=== PATIENT | male | born 1985 | race Caucasian/White ===

== ENCOUNTER 2018-10-14 10:34 | Emergency (ER) | payer OTHER ==
[2018-10-14] MEDS ORDERED: ACETAMINOPHEN 1000 MG/100 ML VIAL (NON FORMULARY) IVPB ONE (10:52)
[2018-10-14] MEDS ORDERED: SODIUM CHLORIDE 0.9% 1000 ML INFUS.BAG IV ONE (10:53)
[2018-10-14 10:55] VITALS: BP 147/84; PULSE 84; TEMP 97.9; BMI 42.5
[2018-10-14] MEDS ORDERED: ACETAMINOPHEN INJECTION 100 ML IVPB ONE (11:40)
[2018-10-14 11:45] LABS: BASO % 3.1 % (0-2.0); EOS % 3.8 % (0-4.5); HEMATOCRIT 45.7 % (35.4-49); HEMOGLOBIN 15.3 GM/dl (11.7-16.9); LYMPH % 21.8 % (8-40); MCHC 33.4 g/dl (32.0-35.9); MEAN CELL VOLUME 89.8 fl (80-96); MEAN PLT VOLUME 8.6 fl (7.5-11.1); MONO % 6.2 % (3.8-10.2); NEUT % 65.1 % (42.8-82.8); PLATELET COUNT 318 K/MM3 (134-434); RBC 5.09 M/mm3 (4.00-5.60); RDW 13.6 % (11.9-15.9); WHITE BLOOD COUNT 10.1 K/mm3 (4.0-10.8)
[2018-10-14 12:06] LABS: ALBUMIN 3.8 g/dl (3.4-5.0); BILIRUBIN,TOTAL 0.8 mg/dl (0.2-1); CALCIUM 9.1 mg/dl (8.5-10); CREATININE 0.9 mg/dl (0.55-1.3); POTASSIUM 4.3 mmol/L (3.5-5.1); TOT PROT 7.1 g/dl (6.4-8.2)
--- NOTE | 2018-10-14 14:16 | PDOC ---
History of Present Illness - General Chief Complaint: Pain Stated Complaint: ABD PAIN History Source: Patient Exam Limitations: No Limitations - History of Present Illness Initial Comments: 10/14/18 14:10 33 yo F with h/o obesity, here with c/o intermittent llq pain. over last few weeks has gotten worse. saw pcp who arranged for outpt ct scan tomrrow. but sxs were worse. pain worse with walking. nausea, no vomiting. no urinary complaints. no h/o kidney stones. does have h/o constipation. no f/c no othre complaints. no testicular pain. Past History - Past Medical History Allergies/Adverse Reactions: Allergies Allergy/AdvReac Type Severity Reaction Status Date / Time No Known Allergies Allergy Verified 10/14/18 10:35 Home Medications: Ambulatory Orders Ciprofloxacin [Cipro -] 500 mg PO Q12H #28 tablet 10/14/18 metroNIDAZOLE [Flagyl -] 500 mg PO TID #42 tablet 10/14/18 COPD: No - Suicide/Smoking/Psychosocial Hx Smoking History: Current every day smoker Have you smoked in the past 12 months: Yes Number of Cigarettes Smoked Daily: 20 Information on smoking cessation initiated: Yes Hx Alcohol Use: No Drug/Substance Use Hx: No Review of Systems - Review of Systems Constitutional: No: Chills, Diaphoresis, Fever HEENTM: No: Blurred Vision Respiratory: No: Cough, Orthopnea Cardiac (ROS): No: Chest Pain, Edema ABD/GI: Yes: Constipated, Nausea. No: Abdominal Distended : No: Burning, Dysuria, Discharge Integumentary: No: Bruising All Other Systems: Reviewed and Negative *Physical Exam - Vital Signs Last Vital Signs Temp Pulse Resp BP Pulse Ox 97.9 F 84 20 147/84 98 10/14/18 10:35 10/14/18 10:35 10/14/18 10:35 10/14/18 10:35 10/14/18 10:35 - Physical Exam Comments: 10/14/18 14:13 awake alert lungs clear bilaterally heart rrr no mrg abd soft obese mild llq suprapubic ttp. no rebound no guarding. no cva tendernss. ext wwp no edema. no calf tenderness. ED Treatment Course - LABORATORY CBC & Chemistry Diagram: 10/14/18 11:28 10/14/18 11:28 - ADDITIONAL ORDERS Additional order review: 10/14/18 11:28 RBC 5.09 MCV 89.8 MCHC 33.4 RDW 13.6 MPV 8.6 Neutrophils % 65.1 Lymphocytes % 21.8 Monocytes % 6.2 Eosinophils % 3.8 Basophils % 3.1 H - RADIOLOGY Radiology Studies Ordered: Category Date Time Status ABDOMEN & PELVIS CT WITH CONTR [CT] Stat CT Scan 10/14/18 10:52 Completed - Medications Given in the ED: ED Medications Discontinued Medications Generic Name Dose Route Start Last Admin Trade Name Yolette PRN Reason Stop Dose Admin Acetaminophen 1,000 mg 10/14/18 10:52 10/14/18 11:31 Ofirmev Injection - IVPB 10/14/18 10:53 1,000 mg ONCE ONE Administration Sodium Chloride 1,000 ml 10/14/18 10:53 10/14/18 11:31 Normal Saline - IV 10/14/18 10:54 1,000 ml ONCE ONE Administration Medical Decision Making - Medical Decision Making 10/14/18 14:13 differential uti pyelo renal colic, diveriticulitis, colitis. plan ct a/p labs ivf ua. pt with diverticulitis on ct. no abscess. labs unremarkable. normal wbc. would like to go home. will dc on cipro and flagyl, fu pcp and gastroenterology. 10/14/18 15:17 called pt pcp to let them know findinga nd need for followup. *DC/Admit/Observation/Transfer Diagnosis at time of Disposition: Diverticulitis - Discharge Dispostion Disposition: HOME Condition at time of disposition: Improved - Prescriptions Prescriptions: Ciprofloxacin [Cipro -] 500 mg PO Q12H #28 tablet metroNIDAZOLE [Flagyl -] 500 mg PO TID #42 tablet - Referrals Referrals: Eliot Gardner MD [Staff Physician] - - Patient Instructions Printed Discharge Instructions: Diverticulitis Additional Instructions: you should follow up with your primary doctors . you should also follow up wtih a general magistrate see referral information for dr gardner, and call to schedule your followup for first available. you should also do liquids only diet until your pain is improving. take ciprofloxacin 500 mg twice daily x 2 weeks. in addition you will take a second antiobiotics flagyl 500 mg three times a day x 2 weeks. do not take alcohol while taking this medication as it can cause intractable vomiting. return for severe or worsening pain, fever vomiting or any concerns. - Post Discharge Activity Forms/Work/School Notes: Back to Work
[2018-10-14] MEDS ORDERED: metroNIDAZOLE 250 MG TABLET ONE (14:33)
[2018-10-14] MEDS ORDERED: CIPROFLOXACIN 250 MG TABLET (RESTRICTED TO ID) PO ONE (14:33)
[2018-10-14] MEDS ORDERED: metroNIDAZOLE 500 MG TABLET PO ONE (14:33)
[2018-10-14] MEDS ORDERED: CIPROFLOXACIN 500 MG TABLET (RESTRICTED TO ID) PO ONE (14:33)
== END 2018-10-14 14:54 | disposition home or self-care (01) ==
LOC: FER 10:34
PROC: 3E0337Z Introduction of Electrolytic and Water Balance Substance into Peripheral Vein, Percutaneous Approach (ICD-10-PCS; principal; 2018-10-14)
PROC: 3E033NZ Introduction of Analgesics, Hypnotics, Sedatives into Peripheral Vein, Percutaneous Approach (ICD-10-PCS; 2018-10-14)
DX: K57.92 Diverticulitis of intestine, part unspecified, without perforation or abscess without bleeding (principal); F17.210 Nicotine dependence, cigarettes, uncomplicated
CPT/HCPCS: 36415; 74177-TC; 80053; 81003; 83690; 85025; 99282-25; J0131; J7030